=== PATIENT | female | born 1990 | race Caucasian/White ===

== ENCOUNTER 2017-06-27 12:41 | Emergency (ER) | payer OTHER ==
--- NOTE | ~2017-06-27 | CR63 ---
[facility]. [facility] A Service of [facility] & [facility] RADIOLOGY TEXT RESULTS PATIENT: EDGARD FERRARO LOCATION: SED : 89 UNIT #: [id number] AGE: [address]: LYNSEY LITTLE SEX: F ORDER DR: [id number] [address] [id number] E MR#: [id number] Acc #: [id number] NAME: EDGARD FERRARO : 1990 SEX: F STUDY DATE/TIME: 06/27/2017 14:10 UNIT: SED ROOM: STUDY DESCRIPTION: CR Chest 2 View Attending Physician: Lynsey Little Ordering Physician: Lynsey Little Primary Care Physician: Marychuy Espinal A.P.R.N. MEDICAL IMAGING REPORT This report is preliminary unless electronic signature is present. EXAM 2 views of the chest COMPARISON August 04, 2010 and March 10, 2008. INDICATIONS 27-year-old female with cough for 2 days, worsening today. Mild chest pain. Dyspnea today. FINDINGS Cardiomediastinal silhouette is within normal limits. There is no evidence of pneumothorax, pleural effusion, or acute airspace disease. IMPRESSION Normal exam. Dictated by... Hayden Tabor M.D. THIS IS AN ELECTRONICALLY VERIFIED REPORT Hayden Tabor M.D. at 06/29/2017 9:00 AM Sofia TD: 06/28/2017 10:33 JOB #: [id number] MEDICAL IMAGING REPORT Page 1 of 1
[~2017-06-27 12:41] MED LIST: AMOXICILLIN500 M1 PO; BACLOFEN10 MG PO; BACTRIM DS TABL1 TA1 PO; BENTYL10 MG PO; DICLOFENAC PO; FLAGYL PO; IBUPROFEN600 MG PO; LORTAB 5/500 TA1 TA1 PO; MACROBID 100 M100 MG PO; NO MEDICATIONS; PHENERGAN25 MG PO; PRENATA CHEWAB1 EAC1 PO; PRENATAL VITAMI1 TA3 PO; PRENATAL1 TA1 PO; PYRIDIUM100 MG PO; SEPTRA DS PO; VIBRAMYCIN100 M1 PO; VOLTAREN75 MG PO; ZOFRANODT PO
[2017-06-27] MEDS ORDERED: NO MEDICATIONS (13:03)
== END 2017-06-27 15:09 | disposition home or self-care (01) ==
LOC: SED 12:41
DX: J20.9 Acute bronchitis, unspecified (principal); J06.9 Acute upper respiratory infection, unspecified; Z88.5 Allergy status to narcotic agent
CPT/HCPCS: 71020; 99283